=== PATIENT | female | born 1975 | race Caucasian/White ===

== ENCOUNTER 2016-04-08 07:52 | Emergency (ER) | payer BC, OTHER ==
[2016-04-08 08:06] VITALS: RESP 16; TEMP 97.8
--- NOTE | 2016-04-08 08:53 | ED ---
Lower Extremity Injury HPI - General Chief Complaint: Extremity Injury, Lower Stated Complaint: LEFT KNEE PAIN Time Seen by Provider: 04/08/16 08:32 Source: patient, RN notes reviewed Mode of arrival: ambulatory Limitations: no limitations - History of Present Illness Initial Comments: 40-year-old female presents emergency Department chief complaint left knee pain. Patient states that she was at work earlier this morning and states that she was bent down and machine states that she stood up states that she felt a pop in her knee. Patient states that she's had prior scopes performed on her left knee. Patient states that she does have some known laxity to her kneecap. She states that there was a sudden pop/snap and then a warm feeling to her knee. She states is swollen and states that she continue to work but states that the pain is getting worse. Patient states that she has no paresthesias. Denies any pain above or below her left knee. - Related Data Home Medications Medication Instructions Recorded Confirmed Acetaminophen [Tylenol] 325 mg PO Q4H PRN 04/08/16 04/08/16 Previous Rx's Medication Instructions Recorded Acetaminophen-Codeine 300-30mg 1 tab PO Q4H PRN #20 tablet 04/08/16 [Tylenol #3] Allergies Allergy/AdvReac Type Severity Reaction Status Date / Time latex Allergy Rash/Hives Verified 04/08/16 08:08 nitrofurantoin Allergy Unknown Verified 04/08/16 08:08 [From Macrobid] nitrofurantoin Allergy Unknown Verified 04/08/16 08:08 macrocrystalline [From Macrobid] rofecoxib [From Vioxx] Allergy Unknown Verified 04/08/16 08:08 ibuprofen AdvReac kidney Verified 04/08/16 08:08 damage Review of Systems ROS Statement: Those systems with pertinent positive or pertinent negative responses have been documented in the HPI. ROS Other: All systems not noted in ROS Statement are negative. Past Medical History Past Medical History: Renal Disease Additional Past Medical History / Comment(s): polycystic kidney disease stage 2 kidney stones History of Any Multi-Drug Resistant Organisms: None Reported Past Surgical History: Orthopedic Surgery, Tubal Ligation Past Psychological History: No Psychological Hx Reported Smoking Status: Light tobacco smoker Past Alcohol Use History: None Reported Past Drug Use History: None Reported General Exam General appearance: alert, in no apparent distress Head exam: Present: atraumatic, normocephalic, normal inspection Respiratory exam: Present: normal lung sounds bilaterally. Absent: respiratory distress, wheezes, rales, rhonchi, stridor Cardiovascular Exam: Present: regular rate, normal rhythm, normal heart sounds. Absent: systolic murmur, diastolic murmur, rubs, gallop, clicks Extremities exam: Present: other (Left knee there is mild swelling, there is some laxity noted to the patella, there is no joint laxity noted neurovascular intact there is no ecchymosis there is no tenderness above or below the left knee.) Skin exam: Present: warm, dry, intact, normal color. Absent: rash Course Vital Signs 04/08/16 07:58 Temperature 97.8 F Pulse Rate 88 Respiratory 16 Rate Blood Pressure 139/80 O2 Sat by Pulse 97 Oximetry Medical Decision Making - Medical Decision Making 40-year-old female presented for left knee pain. X-ray shows no acute abnormality. Patient possibly had a left patella subluxation. Patient does have some generalized pain and swelling. Patient will be referred to [facility] for recheck. Patient be kept off work and placed in knee immobilizer. Disposition Clinical Impression: Left knee sprain Disposition: HOME SELF-CARE Condition: Stable Instructions: Knee Sprain (ED) Additional Instructions: Please return to the Emergency Department if symptoms worsen or any other concerns. Prescriptions: Acetaminophen-Codeine 300-30mg [Tylenol #3] 1 tab PO Q4H PRN #20 tablet PRN Reason: pain Time of Disposition: 09:02
--- NOTE | 2016-04-08 08:59 | XR ---
EXAMINATION TYPE: XR knee complete LT DATE OF EXAM: 04/08/2016 8:42 AM CLINICAL HISTORY: pain TECHNIQUE: Three views of the left knee are obtained. COMPARISON: None. FINDINGS: There is no acute fracture/dislocation. The tri-compartment joint spaces appear mildly na rrowed. The overlying soft tissue appears unremarkable. IMPRESSION: There is no acute fracture or dislocation ICD 10 NO FRACTURE, INITIAL EVALUATION
[2016-04-08 09:16] VITALS: BP 160/80; PULSE 82
== END 2016-04-08 09:10 | disposition home or self-care (01) ==
LOC: EC 07:52
DX: S83.92XA Sprain of unspecified site of left knee, initial encounter (principal); Z88.8 Allergy status to other drugs, medicaments and biological substances; Z91.040 Latex allergy status; Z88.1 Allergy status to other antibiotic agents; F17.200 Nicotine dependence, unspecified, uncomplicated; X58.XXXA Exposure to other specified factors, initial encounter; Y99.0 Civilian activity done for income or pay
CPT/HCPCS: 73562; 99283; L1830

== ENCOUNTER 2017-09-26 04:07 | Emergency (ER) | payer BC, OTHER ==
--- NOTE | 2017-09-26 04:48 | XR ---
EXAMINATION TYPE: XR chest 1V portable DATE OF EXAM: 09/26/2017 COMPARISON: 07/16/2015 HISTORY: Syncope TECHNIQUE: Single frontal view of the chest is obtained. FINDINGS: Heart and mediastinum are normal. Lungs are clear. Diaphragm is normal. Bony thorax appear s normal. IMPRESSION: Normal chest. No change.
--- NOTE | 2017-09-26 05:04 | ED ---
Syncope HPI - General Chief Complaint: Syncope Stated Complaint: Syncope Time Seen by Provider: 09/26/17 04:27 Source: patient Mode of arrival: wheelchair Limitations: no limitations - History of Present Illness Initial Comments: This patient is a 41-year-old woman who presents following a syncopal episode to be evaluated. The patient states she had been at work tonight. She states she had gone to take a break and had walked to the break room. She states that as she went to sit down she noted that she wasn't feeling very well. She states feels a little bit sweaty and lightheaded. She states that the next thing that she knew one of her coworkers was waking her she was slumped on the table that she had sat down it. The patient denies any injury. She did not have any chest pain or dyspnea. No palpitations. Patient states that she feels back to normal MD Complaint: loss of consciousness, felt faint Onset/Timin -: hour(s) Prodromal Symptoms: lightheaded, diaphoresis -: second(s) Witnessed: yes - by bystander Injuries Sustained Associated with Event: None Current Symptoms: back to baseline Treatments Prior to Arrival: none - Related Data Home Medications Medication Instructions Recorded Confirmed Acetaminophen [Tylenol] 325 mg PO Q4H PRN 04/08/16 04/08/16 Previous Rx's Medication Instructions Recorded Acetaminophen-Codeine 300-30mg 1 tab PO Q4H PRN #20 tablet 04/08/16 [Tylenol #3] Allergies Allergy/AdvReac Type Severity Reaction Status Date / Time latex Allergy Rash/Hives Verified 09/26/17 04:24 nitrofurantoin Allergy Unknown Verified 09/26/17 04:24 [From Macrobid] nitrofurantoin Allergy Unknown Verified 09/26/17 04:24 macrocrystalline [From Macrobid] rofecoxib [From Vioxx] Allergy Unknown Verified 09/26/17 04:24 ibuprofen AdvReac kidney Verified 09/26/17 04:24 damage Review of Systems ROS Statement: Those systems with pertinent positive or pertinent negative responses have been documented in the HPI. ROS Other: All systems not noted in ROS Statement are negative. Constitutional: Denies: fever, chills, weakness Eyes: Denies: vision change Respiratory: Denies: cough, dyspnea Cardiovascular: Reports: syncope. Denies: chest pain, palpitations, dyspnea on exertion, edema Gastrointestinal: Denies: abdominal pain, nausea, vomiting, melena, hematochezia Genitourinary: Denies: dysuria, hematuria Musculoskeletal: Denies: back pain Neurological: Denies: headache, weakness, numbness, confusion Past Medical History Past Medical History: Renal Disease Additional Past Medical History / Comment(s): polycystic kidney disease stage 2 kidney stones History of Any Multi-Drug Resistant Organisms: None Reported Past Surgical History: Orthopedic Surgery, Tubal Ligation Past Psychological History: No Psychological Hx Reported Smoking Status: Light tobacco smoker Past Alcohol Use History: None Reported Past Drug Use History: None Reported General Exam Limitations: no limitations General appearance: alert, in no apparent distress Head exam: Present: atraumatic, normocephalic Eye exam: Present: normal appearance. Absent: scleral icterus, conjunctival injection ENT exam: Present: normal oropharynx Respiratory exam: Present: normal lung sounds bilaterally. Absent: respiratory distress, wheezes, rales, rhonchi, stridor Cardiovascular Exam: Present: regular rate, normal rhythm, normal heart sounds. Absent: systolic murmur, diastolic murmur, rubs, gallop GI/Abdominal exam: Present: soft. Absent: distended, tenderness, guarding, rebound, mass Extremities exam: Present: normal inspection, normal capillary refill. Absent: pedal edema, calf tenderness Back exam: Present: normal inspection. Absent: CVA tenderness (R), CVA tenderness (L) Neurological exam: Present: alert, oriented X3, CN II-XII intact. Absent: motor sensory deficit Skin exam: Present: warm, dry, intact, normal color. Absent: rash Course Vital Signs 09/26/17 09/26/17 04:20 07:25 Temperature 98.3 F 98.0 F Pulse Rate 84 77 Respiratory 16 18 Rate Blood Pressure 130/79 125/64 O2 Sat by Pulse 98 100 Oximetry EKG Findings - EKG Results: EKG: interpreted by OSMEL FOURNIER, sinus rhythm (Rate 60 bpm), normal axis, normal QRS, normal ST/T, no acute changes - [place], Pacemaker, Normal: Normal tracing: normal tracing Medical Decision Making - Lab Data Result diagrams: 09/26/17 05:23 09/26/17 05:23 Lab Results 09/26/17 09/26/17 09/26/17 Range/Units 05:23 05:23 05:23 WBC 7.9 (3.8-10.6) k/uL RBC 5.12 (3.80-5.40) m/uL Hgb 9.8 L (11.4-16.0) gm/dL Hct 33.2 L (34.0-46.0) % MCV 64.9 L (80.0-100.0) fL MCH 19.2 L (25.0-35.0) pg MCHC 29.5 L (31.0-37.0) g/dL RDW 17.4 H (11.5-15.5) % Plt Count 262 (150-450) k/uL Neutrophils % 72 % Lymphocytes % 20 % Monocytes % 5 % Eosinophils % 1 % Basophils % 0 % Neutrophils # 5.7 (1.3-7.7) k/uL Lymphocytes # 1.6 (1.0-4.8) k/uL Monocytes # 0.4 (0-1.0) k/uL Eosinophils # 0.1 (0-0.7) k/uL Basophils # 0.0 (0-0.2) k/uL Hypochromasia Marked Anisocytosis Slight Microcytosis Marked PT (9.0-12.0) sec INR (<1.2) APTT (22.0-30.0) sec D-Dimer (<0.60) mg/L FEU Sodium 138 (137-145) mmol/L Potassium 3.8 (3.5-5.1) mmol/L Chloride 107 (98-107) mmol/L Carbon Dioxide 24 (22-30) mmol/L Anion Gap 7 mmol/L BUN 15 (7-17) mg/dL Creatinine 0.80 (0.52-1.04) mg/dL Est GFR (CKD-EPI)AfAm >90 (>60 ml/min/1.73 sqM) Est GFR (CKD-EPI)NonAf >90 (>60 ml/min/1.73 sqM) Glucose 98 (74-99) mg/dL Calcium 9.0 (8.4-10.2) mg/dL Total Bilirubin 0.2 (0.2-1.3) mg/dL AST 17 (14-36) U/L ALT 29 (9-52) U/L Alkaline Phosphatase 59 (38-126) U/L Total Creatine Kinase 72 (30-135) U/L CK-MB (CK-2) 0.5 (0.0-2.4) ng/mL CK-MB (CK-2) Rel Index 0.7 Troponin I <0.012 (0.000-0.034) ng/mL Total Protein 6.1 L (6.3-8.2) g/dL Albumin 3.6 (3.5-5.0) g/dL Urine Color Urine Appearance (Clear) Urine pH (5.0-8.0) Ur Specific [place] (1.001-1.035) Urine Protein (Negative) Urine Glucose (UA) (Negative) Urine Ketones (Negative) Urine Blood (Negative) Urine Nitrite (Negative) Urine Bilirubin (Negative) Urine Urobilinogen (<2.0) mg/dL Ur Leukocyte Esterase (Negative) Urine RBC (0-5) /hpf Urine WBC (0-5) /hpf Ur Squamous Epith Cells (0-4) /hpf Urine Bacteria (None) /hpf Urine Mucus (None) /hpf 09/26/17 09/26/17 Range/Units 05:23 06:46 WBC (3.8-10.6) k/uL RBC (3.80-5.40) m/uL Hgb (11.4-16.0) gm/dL Hct (34.0-46.0) % MCV (80.0-100.0) fL MCH (25.0-35.0) pg MCHC (31.0-37.0) g/dL RDW (11.5-15.5) % Plt Count (150-450) k/uL Neutrophils % % Lymphocytes % % Monocytes % % Eosinophils % % Basophils % % Neutrophils # (1.3-7.7) k/uL Lymphocytes # (1.0-4.8) k/uL Monocytes # (0-1.0) k/uL Eosinophils # (0-0.7) k/uL Basophils # (0-0.2) k/uL Hypochromasia Anisocytosis Microcytosis PT 9.8 (9.0-12.0) sec INR 1.0 (<1.2) APTT 21.0 L (22.0-30.0) sec D-Dimer 0.52 (<0.60) mg/L FEU Sodium (137-145) mmol/L Potassium (3.5-5.1) mmol/L Chloride (98-107) mmol/L Carbon Dioxide (22-30) mmol/L Anion Gap mmol/L BUN (7-17) mg/dL Creatinine (0.52-1.04) mg/dL Est GFR (CKD-EPI)AfAm (>60 ml/min/1.73 sqM) Est GFR (CKD-EPI)NonAf (>60 ml/min/1.73 sqM) Glucose (74-99) mg/dL Calcium (8.4-10.2) mg/dL Total Bilirubin (0.2-1.3) mg/dL AST (14-36) U/L ALT (9-52) U/L Alkaline Phosphatase (38-126) U/L Total Creatine Kinase (30-135) U/L CK-MB (CK-2) (0.0-2.4) ng/mL CK-MB (CK-2) Rel Index Troponin I (0.000-0.034) ng/mL Total Protein (6.3-8.2) g/dL Albumin (3.5-5.0) g/dL Urine Color Light Yellow Urine Appearance Cloudy H (Clear) Urine pH 5.0 (5.0-8.0) Ur Specific [place] 1.007 (1.001-1.035) Urine Protein Negative (Negative) Urine Glucose (UA) Negative (Negative) Urine Ketones Negative (Negative) Urine Blood Small H (Negative) Urine Nitrite Negative (Negative) Urine Bilirubin Negative (Negative) Urine Urobilinogen <2.0 (<2.0) mg/dL Ur Leukocyte Esterase Moderate H (Negative) Urine RBC 1 (0-5) /hpf Urine WBC 4 (0-5) /hpf Ur Squamous Epith Cells 1 (0-4) /hpf Urine Bacteria Many H (None) /hpf Urine Mucus Rare H (None) /hpf Disposition Clinical Impression: Vasovagal syncope, Anemia Disposition: HOME SELF-CARE Condition: Good Instructions: Syncope (ED) Is patient prescribed a controlled substance at d/c from ED?: No Referrals: Ramírez Garcia MD [Primary Care Provider] - 1-2 days
[2017-09-26 05:36] LABS: Anisocytosis Slight; Basophils % (A) 0 %; Eosinophils # (A) 0.1 k/uL (0-0.7); Eosinophils % (A) 1 %; HCT 33.2 % (34.0-46.0); HGB 9.8 gm/dL (11.4-16.0); Hypochromasia Marked; Lymphocytes # (A) 1.6 k/uL (1.0-4.8); Lymphocytes % (A) 20 %; MCH 19.2 pg (25.0-35.0); MCHC 29.5 g/dL (31.0-37.0); MCV 64.9 fL (80.0-100.0); Microcytosis Marked; Monocytes # (A) 0.4 k/uL (0-1.0); Monocytes % (A) 5 %; Neutrophils # (A) 5.7 k/uL (1.3-7.7); Neutrophils % (A) 72 %; Platelet Count 262 k/uL (150-450); RBC 5.12 m/uL (3.80-5.40); RDW 17.4 % (11.5-15.5); WBC 7.9 k/uL (3.8-10.6)
[2017-09-26 05:59] LABS: ALT 29 U/L (9-52); AST 17 U/L (14-36); Albumin 3.6 g/dL (3.5-5.0); Alkaline Phosphatase 59 U/L (38-126); Anion Gap 7 mmol/L; Blood Urea Nitrogen 15 mg/dL (7-17); Carbon Dioxide 24 mmol/L (22-30); Chloride 107 mmol/L (98-107); Glucose 98 mg/dL (74-99); Potassium 3.8 mmol/L (3.5-5.1); Sodium 138 mmol/L (137-145); Total Bilirubin 0.2 mg/dL (0.2-1.3); Total Protein 6.1 g/dL (6.3-8.2)
[2017-09-26 06:14] LABS: Creatine Kinase 72 U/L (30-135)
[2017-09-26 06:22] LABS: D-Dimer 0.52 mg/L FEU (<0.60); Prothrombin Time 9.8 sec (9.0-12.0)
[2017-09-26 06:27] LABS: Creatine Kinase MB 0.5 ng/mL (0.0-2.4); Troponin I <0.012 ng/mL (0.000-0.034)
[2017-09-26 07:02] LABS: Appearance,Urine Cloudy (Clear); Bacteria,Urine Many /hpf; Bilirubin,Urine Negative (Negative); Blood,Urine Small (Negative); Color,Urine Light Yellow; Glucose,Urine (UA) Negative (Negative); Ketones,Urine Negative (Negative); Leukocyte Esterase,Urine Moderate (Negative); Mucus,Urine Rare /hpf; Nitrite,Urine Negative (Negative); Protein,Urine Negative (Negative); RBC,Urine 1 /hpf (0-5); Specific Gravity,Urine 1.007 (1.001-1.035); Squamous Epithelial Cell,Urine 1 /hpf (0-4); Urobilinogen,Urine <2.0 mg/dL (<2.0); WBC,Urine 4 /hpf (0-5)
[2017-09-26 07:26] VITALS: BP 125/64; PULSE 77; RESP 18; TEMP 98
== END 2017-09-26 07:26 | disposition home or self-care (01) ==
LOC: EC 04:07
DX: R55 Syncope and collapse (principal); D64.9 Anemia, unspecified; F17.200 Nicotine dependence, unspecified, uncomplicated; Z91.040 Latex allergy status; Z88.1 Allergy status to other antibiotic agents; Z88.6 Allergy status to analgesic agent; Z88.8 Allergy status to other drugs, medicaments and biological substances
CPT/HCPCS: 36415; 71045; 80053; 81001; 82550; 82553; 84484; 85025; 85379; 85610; 85730; 93005; 99284

== ENCOUNTER 2018-10-27 03:51 | Emergency (ER) | payer BC ==
[2018-10-27 04:03] VITALS: BP 150/77; PULSE 70; RESP 18; TEMP 98.2
[2018-10-27] MEDS ORDERED: MORPHINE SULFATE 4 MG/ML SYRINGE IM STA (04:36)
--- NOTE | 2018-10-27 04:37 | ED ---
Lower Extremity Injury HPI - General Chief Complaint: Extremity Injury, Lower Stated Complaint: Lt knee pain Time Seen by Provider: 10/27/18 04:10 Source: patient, family Mode of arrival: ambulatory Limitations: no limitations - History of Present Illness Initial Comments: Amelia is a 42-year-old female with chronic left-sided knee pain for which she has undergone orthoscopic surgery of the left knee 3 times in the past. Patient reports that due to these previous surgery she does typically have some laxity in the patella many. Patient reports that she was walking today and felt like her leg gave out and since that time has felt a burning sensation on the left lateral side of her knee. Patient has not noticed any swelling or redness tenderness she still able to ambulate but has discomfort and burning. She denies other complaints or injuries. - Related Data Home Medications Medication Instructions Recorded Confirmed Acetaminophen [Tylenol] 325 mg PO Q4H PRN 04/08/16 04/08/16 Previous Rx's Medication Instructions Recorded Acetaminophen-Codeine 300-30mg 1 tab PO Q4H PRN #20 tablet 04/08/16 [Tylenol #3] Allergies Allergy/AdvReac Type Severity Reaction Status Date / Time latex Allergy Rash/Hives Verified 10/27/18 04:03 nitrofurantoin Allergy Unknown Verified 10/27/18 04:03 [From Macrobid] nitrofurantoin Allergy Unknown Verified 10/27/18 04:03 macrocrystalline [From Macrobid] rofecoxib [From Vioxx] Allergy Unknown Verified 10/27/18 04:03 ibuprofen AdvReac kidney Verified 10/27/18 04:03 damage Review of Systems ROS Statement: Those systems with pertinent positive or pertinent negative responses have been documented in the HPI. ROS Other: All systems not noted in ROS Statement are negative. Past Medical History Past Medical History: Renal Disease Additional Past Medical History / Comment(s): polycystic kidney disease stage 2 kidney stones History of Any Multi-Drug Resistant Organisms: None Reported Past Surgical History: Orthopedic Surgery, Tubal Ligation Past Psychological History: No Psychological Hx Reported Smoking Status: Current every day smoker Past Alcohol Use History: None Reported Past Drug Use History: None Reported General Exam - General Exam Comments Initial Comments: Physical Exam GENERAL: Patient is well-developed and well-nourished. Patient is nontoxic and well- hydrated and is in no distress. HENT: Normocephalic, Atraumatic. EYES: PERRL, EOMI PULMONARY: Unlabored respirations. No audible rales rhonchi or wheezing was noted. CARDIOVASCULAR: There is a regular rate and rhythm without any murmurs gallops or rubs. ABDOMEN: Soft and nontender with normal bowel sounds. SKIN: Skin is clear with no lesions or rashes and otherwise unremarkable. : Deferred NEUROLOGIC: Patient is alert and oriented x3. Moving all extremities spontaneously MUSCULOSKELETAL: Normal extremities with adequate strength and full range of motion. No lower extremity swelling or edema. No calf tenderness. Crepitus with movement of the patella, consistent with chronic arthritic changes PSYCHIATRIC: Normal psychiatric evaluation. Limitations: no limitations Course Vital Signs 10/27/18 03:59 Temperature 98.2 F Pulse Rate 70 Respiratory 18 Rate Blood Pressure 150/77 O2 Sat by Pulse 100 Oximetry Medical Decision Making - Medical Decision Making The patient was seen and evaluated history is obtained from the patient's history and physical exam are concerning for acute on chronic knee pain Patient is ALLERGIC to NSAIDs therefore IM morphine was ordered for pain management patient was advised to follow-up with orthopedics Disposition Clinical Impression: Chronic knee pain Disposition: HOME SELF-CARE Condition: Stable Instructions (If sedation given, give patient instructions): Knee Pain (ED) Is patient prescribed a controlled substance at d/c from ED?: No Referrals: Ramírez Garcia MD [Primary Care Provider] - 1-2 days
== END 2018-10-27 05:24 | disposition home or self-care (01) ==
LOC: EC 03:51
DX: G89.29 Other chronic pain (principal); M25.562 Pain in left knee; F17.200 Nicotine dependence, unspecified, uncomplicated; Z88.1 Allergy status to other antibiotic agents; Z88.6 Allergy status to analgesic agent; Z91.040 Latex allergy status; Z98.890 Other specified postprocedural states
CPT/HCPCS: 99283; 96372; J2270

== ENCOUNTER 2019-04-23 11:58 | Day surgery (SDC) | payer BC ==
[2019-04-20 09:59] VITALS: BMI 30.9
[~2019-04-23 11:58] MED LIST: SODIUM CHLORIDE 0.9% 1,000 ML IV SCH
[2019-04-23] MEDS ORDERED: IV FLUID CONTINUATION 1,000 ML IV ONE (12:20)
[2019-04-23 12:48] VITALS: BP 138/80; PULSE 94; RESP 16; TEMP 98.4
--- NOTE | 2019-04-23 16:04 | P.PCN ---
Preoperative Diagnosis: Diagnosis: Recurrent syncope Baseline 12-lead EKG shows sinus mechanism with artifact, normal CO, narrow QRS, normal ST segments, normal QT interval, no delta or epsilon waves Baseline heart rate was 75 bpm, Baseline blood pressure was 121/76 mmHg. The patient was tilted upright at a 70 angle as per protocol. Blood pressure remained stable, no significant changes in heart rate. The patient did complain of dizziness during the procedure and at that time her blood pressure was 129/82 mmHg and her heart rate was 99 bpm. At the end of the procedure she was laid supine. Her vital signs remained stable. She was asymptomatic. Impression Normal twelve-lead EKG Normal heart rate and blood pressure response to upright tilting No evidence for neurocardiogenic syncope or dysautonomia
== END 2019-04-23 15:30 | disposition home or self-care (01) ==
LOC: CATHEP 11:58
PROVIDERS: ATTEND Internal Medicine Clinical Cardiac Electrophysiology
DX: R55 Syncope and collapse (principal); Q61.3 Polycystic kidney, unspecified; Z72.0 Tobacco use; Z82.49 Family history of ischemic heart disease and other diseases of the circulatory system; Z88.6 Allergy status to analgesic agent; Z88.1 Allergy status to other antibiotic agents
CPT/HCPCS: 81025; 93660

== ENCOUNTER 2019-12-23 23:23 | Emergency (ER) | payer BC, OTHER ==
[2019-12-23 23:28] VITALS: RESP 18
[2019-12-23] MEDS ORDERED: SODIUM CHLORIDE 0.9% 1,000 ML IV STA (23:41)
[2019-12-24 00:15] LABS: Basophils % (A) 0 %; Eosinophils # (A) 0.2 k/uL (0-0.7); Eosinophils % (A) 3 %; HCT 45.9 % (34.0-46.0); HGB 15.2 gm/dL (11.4-16.0); Lymphocytes # (A) 1.5 k/uL (1.0-4.8); Lymphocytes % (A) 21 %; MCH 28.7 pg (25.0-35.0); MCHC 33.2 g/dL (31.0-37.0); MCV 86.4 fL (80.0-100.0); Mean Platelet Volume 8.8; Monocytes # (A) 0.4 k/uL (0-1.0); Monocytes % (A) 6 %; Neutrophils # (A) 4.8 k/uL (1.3-7.7); Neutrophils % (A) 68 %; Platelet Count 157 k/uL (150-450); RBC 5.31 m/uL (3.80-5.40); RDW 12.8 % (11.5-15.5); WBC 7.1 k/uL (3.8-10.6)
[2019-12-24 00:27] LABS: ALT 15 U/L (4-34); AST 18 U/L (14-36); African American GFR (CKD) >90 (>60 ml/min/1.73 sqM); Albumin 3.2 g/dL (3.5-5.0); Alkaline Phosphatase 63 U/L (38-126); Anion Gap 5 mmol/L; Blood Urea Nitrogen 14 mg/dL (7-17); C Reactive Protein 7.7 mg/L (<10.0); Calcium 8.6 mg/dL (8.4-10.2); Carbon Dioxide 21 mmol/L (22-30); Chloride 109 mmol/L (98-107); Glucose 112 mg/dL (74-99); Non-African American GFR(CKD) >90 (>60 ml/min/1.73 sqM); Potassium 3.8 mmol/L (3.5-5.1); Sodium 135 mmol/L (137-145); Total Bilirubin 0.2 mg/dL (0.2-1.3); Total Protein 5.9 g/dL (6.3-8.2)
[2019-12-24 01:27] LABS: Appearance,Urine Clear (Clear); Bacteria,Urine Occasional /hpf; Bilirubin,Urine Negative (Negative); Blood,Urine Moderate (Negative); Color,Urine Light Yellow; Glucose,Urine (UA) Negative (Negative); Hyaline Casts,Urine 1 /lpf (0-2); Ketones,Urine Negative (Negative); Leukocyte Esterase,Urine Trace (Negative); Mucus,Urine Rare /hpf; Nitrite,Urine Negative (Negative); PH, Urine 5.5 (5.0-8.0); Protein,Urine 1+ (Negative); RBC,Urine 1 /hpf (0-5); Squamous Epithelial Cell,Urine 2 /hpf (0-4); Urobilinogen,Urine <2.0 mg/dL (<2.0); WBC,Urine 3 /hpf (0-5)
--- NOTE | 2019-12-24 02:00 | ED ---
Abdominal Pain HPI - General Chief Complaint: Abdominal Pain Stated Complaint: Pelvic/Hip Pain Time Seen by Provider: 12/23/19 23:34 Source: patient Mode of arrival: ambulatory Limitations: no limitations - History of Present Illness Initial Comments: Amelia is a 44-year-old female with a history of polycystic kidney disease who presents the ER today for evaluation of right lower quadrant abdominal pain. Patient reports she initially developed some pain on , the pain seemed to improve however tonight when she was getting ready for work the pain worsened. Pain is in her right lower quadrant seems to radiate to the hip. No pain radiating to the back. Patient states she does have a history of rupturing of systems he needs in the past which has resulted in pain similar to this however this seemed more severe which prompted her bring her to the ER for further evaluation. She didn't know mild blood in her urine earlier today but denies any change in bowel or bladder habits, any dysuria. - Related Data Home Medications Medication Instructions Recorded Confirmed Acetaminophen [Tylenol] 325 mg PO Q4H PRN 04/08/16 04/20/19 Naproxen Sodium [Aleve] 220 mg PO DAILY PRN 04/20/19 04/20/19 Allergies Allergy/AdvReac Type Severity Reaction Status Date / Time latex Allergy Rash/Hives Verified 12/23/19 23:28 nitrofurantoin Allergy Unknown Verified 12/23/19 23:28 [From Macrobid] nitrofurantoin Allergy Unknown Verified 12/23/19 23:28 macrocrystalline [From Macrobid] rofecoxib [From Vioxx] Allergy Unknown Verified 12/23/19 23:28 ibuprofen AdvReac kidney Verified 12/23/19 23:28 damage Review of Systems ROS Statement: Those systems with pertinent positive or pertinent negative responses have been documented in the HPI. ROS Other: All systems not noted in ROS Statement are negative. Past Medical History Past Medical History: Renal Disease, Syncope Additional Past Medical History / Comment(s): Polycystic Kidney Disease, Stage 2, hx kidney stones. Hx syncope X2 since Jan 2019. History of Any Multi-Drug Resistant Organisms: None Reported Past Surgical History: Orthopedic Surgery, Tubal Ligation Additional Past Surgical History / Comment(s): Left knee arthroscopy X3. Past Anesthesia/Blood Transfusion Reactions: No Reported Reaction Past Psychological History: No Psychological Hx Reported Smoking Status: Current every day smoker Past Alcohol Use History: Occasional Past Drug Use History: None Reported - Past Family History Mother Family Medical History: No Reported History General Exam - General Exam Comments Initial Comments: Physical Exam GENERAL: Patient is well-developed and well-nourished. Patient is nontoxic and well-hydrated and is in no distress. HENT: Normocephalic, Atraumatic. EYES: PERRL, EOMI PULMONARY: Unlabored respirations. No audible rales rhonchi or wheezing was noted. CARDIOVASCULAR: There is a regular rate and rhythm without any murmurs gallops or rubs. ABDOMEN: Obese Non-peritoneal Soft and nontender with normal bowel sounds. SKIN: Skin is clear with no lesions or rashes and otherwise unremarkable. : Deferred NEUROLOGIC: Patient is alert and oriented x3. Moving all extremities spontaneously MUSCULOSKELETAL: Normal extremities with adequate strength and full range of motion. No lower extremity swelling or edema. No calf tenderness. PSYCHIATRIC: Normal psychiatric evaluation. Limitations: no limitations Course Vital Signs 12/23/19 12/24/19 23:24 02:14 Temperature 98 F Pulse Rate 79 65 Respiratory 18 18 Rate Blood Pressure 163/90 151/86 O2 Sat by Pulse 98 97 Oximetry Medical Decision Making - Medical Decision Making The patient was seen and evaluated for right lower quadrant abdominal pain which she reports is similar to previous cyst ruptures from her polycystic ED disease. Physical exam is unremarkable there's no evidence of inguinal hernia or abdominal wall hernia no peritonitis Labs and CT were unremarkable Discussed with patient that she is likely right that her discomfort is secondary to cysts, she is comfortable to plan for discharge home will be given a single dose of pain medications prior to discharge and discharged home with a Tylenol 3 starter pack - Lab Data Result diagrams: 12/24/19 00:08 12/24/19 00:08 Lab Results 12/24/19 12/24/19 12/24/19 Range/Units 00:08 00:08 00:08 WBC 7.1 (3.8-10.6) k/uL RBC 5.31 (3.80-5.40) m/uL Hgb 15.2 (11.4-16.0) gm/dL Hct 45.9 (34.0-46.0) % MCV 86.4 (80.0-100.0) fL MCH 28.7 (25.0-35.0) pg MCHC 33.2 (31.0-37.0) g/dL RDW 12.8 (11.5-15.5) % Plt Count 157 (150-450) k/uL Neutrophils % 68 % Lymphocytes % 21 % Monocytes % 6 % Eosinophils % 3 % Basophils % 0 % Neutrophils # 4.8 (1.3-7.7) k/uL Lymphocytes # 1.5 (1.0-4.8) k/uL Monocytes # 0.4 (0-1.0) k/uL Eosinophils # 0.2 (0-0.7) k/uL Basophils # 0.0 (0-0.2) k/uL Sodium 135 L (137-145) mmol/L Potassium 3.8 (3.5-5.1) mmol/L Chloride 109 H (98-107) mmol/L Carbon Dioxide 21 L (22-30) mmol/L Anion Gap 5 mmol/L BUN 14 (7-17) mg/dL Creatinine 0.78 (0.52-1.04) mg/dL Est GFR (CKD-EPI)AfAm >90 (>60 ml/min/1.73 sqM) Est GFR (CKD-EPI)NonAf >90 (>60 ml/min/1.73 sqM) Glucose 112 H (74-99) mg/dL Calcium 8.6 (8.4-10.2) mg/dL Total Bilirubin 0.2 (0.2-1.3) mg/dL AST 18 (14-36) U/L ALT 15 (4-34) U/L Alkaline Phosphatase 63 (38-126) U/L C-Reactive Protein 7.7 (<10.0) mg/L Total Protein 5.9 L (6.3-8.2) g/dL Albumin 3.2 L (3.5-5.0) g/dL Lipase 149 (23-300) U/L Urine Color Light Yellow Urine Appearance Clear (Clear) Urine pH 5.5 (5.0-8.0) Ur Specific [place] 1.010 (1.001-1.035) Urine Protein 1+ H (Negative) Urine Glucose (UA) Negative (Negative) Urine Ketones Negative (Negative) Urine Blood Moderate H (Negative) Urine Nitrite Negative (Negative) Urine Bilirubin Negative (Negative) Urine Urobilinogen <2.0 (<2.0) mg/dL Ur Leukocyte Esterase Trace H (Negative) Urine RBC 1 (0-5) /hpf Urine WBC 3 (0-5) /hpf Ur Squamous Epith Cells 2 (0-4) /hpf Urine Bacteria Occasional H (None) /hpf Hyaline Casts 1 (0-2) /lpf Urine Mucus Rare H (None) /hpf Disposition Clinical Impression: Abdominal pain Disposition: HOME SELF-CARE Condition: Stable Instructions (If sedation given, give patient instructions): Abdominal Pain (ED) Is patient prescribed a controlled substance at d/c from ED?: No Referrals: Ramírez Garcia MD [Primary Care Provider] - 1-2 days
--- NOTE | 2019-12-24 02:29 | CT ---
EXAMINATION TYPE: CT abdomen pelvis w con DATE OF EXAM: 12/24/2019 COMPARISON: 09/28/2015 HISTORY: RLQ pain/Groin pain CT DLP: 1695.8 mGycm Automated exposure control for dose reduction was used. CONTRAST: Performed with IV Contrast, patient injected with 100 mL of Isovue 300. Lung bases are clear of consolidation. There is no pleural effusion. Heart appears normal. There is n o pericardial effusion. There are multiple small cysts in the liver that measure up to 1.6 cm. There are numerous bilateral r enal cortical cysts that measure up to 9 cm. This is consistent with adult type polycystic kidney dis ease. Spleen is intact. There is no pancreatic solid mass. There is 6 mm cyst in the body of the panc reas. The stomach is intact. Gallbladder appears normal. There is no adrenal mass. Kidneys show satisfactory contrast opacification. There is no hydronephrosi s. Ureters are not dilated. There is no retroperitoneal adenopathy. There are bilateral tubal implant s. There is no inguinal hernia. Bladder distends smoothly. There is no evidence of pelvic mass. There is no free fluid in the pelvis. Appendix is very small and appears normal. Lumbar vertebra have normal spacing and alignment. The bony pelvis is intact. Hip joints are intact. There is no evidence of hip dysplasia. IMPRESSION: Hepatic and renal cysts consistent with adult type polycystic disease. Renal cysts unchanged. Hepatic cysts are increased compared to old exam. No sign of renal obstruction. No sign of appendicitis.
[2019-12-24] MEDS ORDERED: ACET/COD 300 MG/30 MG STARTER PACK 6 TAB BTL PO STA (04:00)
[2019-12-24] MEDS ORDERED: MORPHINE SULFATE 4 MG/ML SYRINGE IVP STA (04:00)
[2019-12-24 04:28] VITALS: BP 152/83; PULSE 74; TEMP 98.1
== END 2019-12-24 04:28 | disposition home or self-care (01) ==
LOC: EC 23:23
DX: R10.31 Right lower quadrant pain (principal); F17.200 Nicotine dependence, unspecified, uncomplicated; Z88.1 Allergy status to other antibiotic agents; Z88.6 Allergy status to analgesic agent; Z88.8 Allergy status to other drugs, medicaments and biological substances; Z91.040 Latex allergy status
CPT/HCPCS: 36415; 74177; 80053; 81001; 83690; 85025; 86140; 96361; 96374; 99284

== ENCOUNTER 2020-11-05 05:49 | Emergency (ER) | payer BC, OTHER ==
[2020-11-05 06:01] VITALS: RESP 18
[2020-11-05] MEDS ORDERED: SODIUM CHLORIDE 0.9% 500 ML 500 ML IV STA (06:13)
[2020-11-05] MEDS ORDERED: ONDANSETRON 4 MG/2 ML VIAL IVP STA ×2 (06:13→08:40)
[2020-11-05] MEDS ORDERED: MORPHINE SULFATE 2 MG/ML SYRINGE IVP STA (06:13)
[2020-11-05 06:54] LABS: Anisocytosis Slight; Basophils % (A) 0 %; Eosinophils # (A) 0.1 k/uL (0-0.7); Eosinophils % (A) 1 %; HCT 36.7 % (34.0-46.0); HGB 11.8 gm/dL (11.4-16.0); Hypochromasia Slight; Lymphocytes # (A) 1.9 k/uL (1.0-4.8); Lymphocytes % (A) 25 %; MCH 24.2 pg (25.0-35.0); MCHC 32.2 g/dL (31.0-37.0); MCV 75.3 fL (80.0-100.0); Mean Platelet Volume 9.6; Microcytosis Slight; Monocytes # (A) 0.4 k/uL (0-1.0); Monocytes % (A) 5 %; Neutrophils % (A) 67 %; Platelet Count 227 k/uL (150-450); RBC 4.87 m/uL (3.80-5.40); RDW 16.2 % (11.5-15.5); WBC 7.4 k/uL (3.8-10.6)
[2020-11-05 07:02] LABS: Appearance,Urine Cloudy (Clear); Bacteria,Urine Few /hpf; Bilirubin,Urine Negative (Negative); Blood,Urine Moderate (Negative); Color,Urine Yellow; Glucose,Urine (UA) Negative (Negative); Ketones,Urine Trace (Negative); Leukocyte Esterase,Urine Trace (Negative); Mucus,Urine Rare /hpf; Nitrite,Urine Negative (Negative); Protein,Urine 1+ (Negative); RBC,Urine 2 /hpf (0-5); Specific Gravity,Urine 1.014 (1.001-1.035); Squamous Epithelial Cell,Urine 3 /hpf (0-4); Urobilinogen,Urine <2.0 mg/dL (<2.0); WBC,Urine 3 /hpf (0-5)
[2020-11-05 07:03] LABS: INR 0.9 (<1.2); Partial Thromboplastin Time 23.1 sec (22.0-30.0); Prothrombin Time 9.8 sec (9.0-12.0)
[2020-11-05 07:04] LABS: Albumin 3.7 g/dL (3.5-5.0); Calcium 9.3 mg/dL (8.4-10.2); Total Bilirubin 0.1 mg/dL (0.2-1.3); Total Protein 6.5 g/dL (6.3-8.2)
--- NOTE | 2020-11-05 07:29 | ED ---
Abdominal Pain HPI - General Chief Complaint: Abdominal Pain Stated Complaint: RT flank pain Time Seen by Provider: 11/05/20 06:04 Source: patient, family Mode of arrival: ambulatory Limitations: no limitations - History of Present Illness Initial Comments: Patient is a 44-year-old female with history of polycystic kidney disease, presenting to the emergency Department with complaints of right upper quadrant pain that started about 4 hours prior to arrival. She states she was at work and suddenly had right upper quadrant pain with some mild radiation towards the right side. She rates the pain 8/10. She does admit to some mild nausea but no vomiting, her bowel movements have been normal. She does have history of polycystic kidney disease and kidney stones, pain does feel similar to her stones. She admits to tubal ligation, no other abdominal surgeries. She denies any recent fevers or chills, no chest pain or shortness of breath, no cough. She has no further complaints. Her vitals are stable upon arrival. - Related Data Home Medications Medication Instructions Recorded Confirmed Acetaminophen [Tylenol] 325 mg PO Q4H PRN 04/08/16 04/20/19 Naproxen Sodium [Aleve] 220 mg PO DAILY PRN 04/20/19 04/20/19 Previous Rx's Medication Instructions Recorded Ondansetron Odt [Zofran Odt] 4 mg PO Q8HR PRN #10 tab 11/05/20 Allergies Allergy/AdvReac Type Severity Reaction Status Date / Time latex Allergy Rash/Hives Verified 11/05/20 06:01 nitrofurantoin Allergy Unknown Verified 11/05/20 06:01 [From Macrobid] nitrofurantoin Allergy Unknown Verified 11/05/20 06:01 macrocrystalline [From Macrobid] rofecoxib [From Vioxx] Allergy Unknown Verified 11/05/20 06:01 ibuprofen AdvReac kidney Verified 11/05/20 06:01 damage Review of Systems ROS Statement: Those systems with pertinent positive or pertinent negative responses have been documented in the HPI. ROS Other: All systems not noted in ROS Statement are negative. Past Medical History Past Medical History: Renal Disease, Syncope Additional Past Medical History / Comment(s): Polycystic Kidney Disease, Stage 2 , hx kidney stones. Hx syncope X2 since Jan 2019. History of Any Multi-Drug Resistant Organisms: None Reported Past Surgical History: Orthopedic Surgery, Tubal Ligation Additional Past Surgical History / Comment(s): Left knee arthroscopy X3. Past Anesthesia/Blood Transfusion Reactions: No Reported Reaction Past Psychological History: No Psychological Hx Reported Smoking Status: Current every day smoker Past Alcohol Use History: Occasional Past Drug Use History: None Reported - Past Family History Mother Family Medical History: No Reported History General Exam - General Exam Comments Initial Comments: GENERAL: Patient is well-developed and well-nourished. Patient is nontoxic and in no acute distress. HEAD: Atraumatic, normocephalic. EYES: Pupils equal round and reactive to light, extraocular movements intact, sclera anicteric, conjunctiva are normal. Eyelids were unremarkable. ENT: TMs normal, nares patent, oropharynx clear without exudates. Moist mucous membranes. NECK: Normal range of motion, supple without lymphadenopathy or JVD. LUNGS: Unlabored respirations. Breath sounds clear to auscultation bilaterally and equal. No wheezes rales or rhonchi. HEART: Regular rate and rhythm without murmurs, rubs or gallops. ABDOMEN: Soft, right upper quadrant pain, right sided pain, normoactive bowel sounds. No guarding, no rebound. No masses appreciated. : Deferred MUSCULOSKELETAL: Normal extremities with adequate strength and normal range of motion, no pitting or edema. No clubbing or cyanosis. NEUROLOGICAL: Patient is alert and oriented x 3. Motor and sensory are also intact. Cranial nerves II through XII grossly intact. Symmetrical smile. Normal speech, normal gait. PSYCH: Normal mood, normal affect. SKIN: Warm, Dry, normal turgor, no rashes or lesions noted. Limitations: no limitations Course Vital Signs 11/05/20 11/05/20 05:57 08:26 Temperature 98.2 F Pulse Rate 69 61 Respiratory 18 18 Rate Blood Pressure 170/82 136/77 O2 Sat by Pulse 100 100 Oximetry Medical Decision Making - Medical Decision Making Patient is a 44-year-old female here for right sided pain right upper quadrant pain started at 2 AM when she was at work. She does have a history polycystic kidney disease, kidney stones. She denies any fevers. Mild nausea but no vomiting no diarrhea. Labs show a normal white count of 7.4, kidney function is stable, urine does show moderate blood but no signs of infection. She states she is not on her menstrual cycle. I didn't ultrasound of the gallbladder, there is no other abnormality seen other than the polycystic kidney disease. KUB showed no acute process. Given the hematuria and abrupt onset of pain, suspect likely a small kidney stone. I did give her some fluids pain control, she's been resting comfortably. I discussed continue to increase her fluid intake, will send her home with Zofran and some pain relief. She is in agreement with this plan of care. She can follow up with urology. Return parameters were discussed with her and she verbalized understanding. Case discussed with Dr. Veras. - Lab Data Result diagrams: 11/05/20 06:36 11/05/20 06:36 Lab Results 11/05/20 11/05/20 11/05/20 Range/Units 06:36 06:36 06:36 WBC 7.4 (3.8-10.6) k/uL RBC 4.87 (3.80-5.40) m/uL Hgb 11.8 (11.4-16.0) gm/dL Hct 36.7 (34.0-46.0) % MCV 75.3 L (80.0-100.0) fL MCH 24.2 L (25.0-35.0) pg MCHC 32.2 (31.0-37.0) g/dL RDW 16.2 H (11.5-15.5) % Plt Count 227 (150-450) k/uL MPV 9.6 Neutrophils % 67 % Lymphocytes % 25 % Monocytes % 5 % Eosinophils % 1 % Basophils % 0 % Neutrophils # 5.0 (1.3-7.7) k/uL Lymphocytes # 1.9 (1.0-4.8) k/uL Monocytes # 0.4 (0-1.0) k/uL Eosinophils # 0.1 (0-0.7) k/uL Basophils # 0.0 (0-0.2) k/uL Hypochromasia Slight Anisocytosis Slight Microcytosis Slight PT 9.8 (9.0-12.0) sec INR 0.9 (<1.2) APTT 23.1 (22.0-30.0) sec Sodium (137-145) mmol/L Potassium (3.5-5.1) mmol/L Chloride (98-107) mmol/L Carbon Dioxide (22-30) mmol/L Anion Gap mmol/L BUN (7-17) mg/dL Creatinine (0.52-1.04) mg/dL Est GFR (CKD-EPI)AfAm (>60 ml/min/1.73 sqM) Est GFR (CKD-EPI)NonAf (>60 ml/min/1.73 sqM) Glucose (74-99) mg/dL Calcium (8.4-10.2) mg/dL Total Bilirubin (0.2-1.3) mg/dL AST (14-36) U/L ALT (4-34) U/L Alkaline Phosphatase (38-126) U/L Total Protein (6.3-8.2) g/dL Albumin (3.5-5.0) g/dL Amylase (30-110) U/L Lipase (23-300) U/L Urine Color Yellow Urine Appearance Cloudy H (Clear) Urine pH 5.0 (5.0-8.0) Ur Specific [place] 1.014 (1.001-1.035) Urine Protein 1+ H (Negative) Urine Glucose (UA) Negative (Negative) Urine Ketones Trace H (Negative) Urine Blood Moderate H (Negative) Urine Nitrite Negative (Negative) Urine Bilirubin Negative (Negative) Urine Urobilinogen <2.0 (<2.0) mg/dL Ur Leukocyte Esterase Trace H (Negative) Urine RBC 2 (0-5) /hpf Urine WBC 3 (0-5) /hpf Ur Squamous Epith Cells 3 (0-4) /hpf Urine Bacteria Few H (None) /hpf Urine Mucus Rare H (None) /hpf Urine HCG, Qual (Not Detectd) 11/05/20 11/05/20 Range/Units 06:36 06:36 WBC (3.8-10.6) k/uL RBC (3.80-5.40) m/uL Hgb (11.4-16.0) gm/dL Hct (34.0-46.0) % MCV (80.0-100.0) fL MCH (25.0-35.0) pg MCHC (31.0-37.0) g/dL RDW (11.5-15.5) % Plt Count (150-450) k/uL MPV Neutrophils % % Lymphocytes % % Monocytes % % Eosinophils % % Basophils % % Neutrophils # (1.3-7.7) k/uL Lymphocytes # (1.0-4.8) k/uL Monocytes # (0-1.0) k/uL Eosinophils # (0-0.7) k/uL Basophils # (0-0.2) k/uL Hypochromasia Anisocytosis Microcytosis PT (9.0-12.0) sec INR (<1.2) APTT (22.0-30.0) sec Sodium 136 L (137-145) mmol/L Potassium 4.0 (3.5-5.1) mmol/L Chloride 107 (98-107) mmol/L Carbon Dioxide 23 (22-30) mmol/L Anion Gap 6 mmol/L BUN 18 H (7-17) mg/dL Creatinine 0.93 (0.52-1.04) mg/dL Est GFR (CKD-EPI)AfAm 88 (>60 ml/min/1.73 sqM) Est GFR (CKD-EPI)NonAf 76 (>60 ml/min/1.73 sqM) Glucose 91 (74-99) mg/dL Calcium 9.3 (8.4-10.2) mg/dL Total Bilirubin 0.1 L (0.2-1.3) mg/dL AST 23 (14-36) U/L ALT 22 (4-34) U/L Alkaline Phosphatase 68 (38-126) U/L Total Protein 6.5 (6.3-8.2) g/dL Albumin 3.7 (3.5-5.0) g/dL Amylase 43 (30-110) U/L Lipase 140 (23-300) U/L Urine Color Urine Appearance (Clear) Urine pH (5.0-8.0) Ur Specific [place] (1.001-1.035) Urine Protein (Negative) Urine Glucose (UA) (Negative) Urine Ketones (Negative) Urine Blood (Negative) Urine Nitrite (Negative) Urine Bilirubin (Negative) Urine Urobilinogen (<2.0) mg/dL Ur Leukocyte Esterase (Negative) Urine RBC (0-5) /hpf Urine WBC (0-5) /hpf Ur Squamous Epith Cells (0-4) /hpf Urine Bacteria (None) /hpf Urine Mucus (None) /hpf Urine HCG, Qual Not Detected (Not Detectd) Disposition Clinical Impression: Right flank pain, Kidney stone on right side Disposition: HOME SELF-CARE Condition: Stable Instructions (If sedation given, give patient instructions): Kidney Stones (ED) Additional Instructions: Please return to the Emergency Department if symptoms worsen or any other concerns. May take Zofran every 8 hours for nausea, recommend Tylenol for discomfort, for more severe pain may take tramadol every 8 hours. Drink plenty of fluids. Please follow up with urology. Prescriptions: Ondansetron Odt [Zofran Odt] 4 mg PO Q8HR PRN #10 tab PRN Reason: Nausea Is patient prescribed a controlled substance at d/c from ED?: No Referrals: Ramírez Garcia MD [Primary Care Provider] - 1-2 days Sheldon Tate MD [STAFF PHYSICIAN] - 1-2 days Time of Disposition: 08:42
--- NOTE | 2020-11-05 07:58 | US ---
EXAMINATION TYPE: US gallbladder DATE OF EXAM: 11/05/2020 COMPARISON: NONE CLINICAL HISTORY: RUQ pain. right sided pain today, known polycystic renal disease EXAM MEASUREMENTS: Liver Length: 16.1 cm Gallbladder Wall: 0.2 cm CBD: 0.3 cm Right Kidney: 18.8 x 9.1 x 9.2 cm Pancreas: wnl Liver: intercostal imaging due to bowel gas wnl Gallbladder: wnl Evidence for sonographic Ferguson's sign: no CBD: wnl Right Kidney: innumerable cysts seen, enlarged IMPRESSION: Polycystic kidney disease. Otherwise unremarkable study.
--- NOTE | 2020-11-05 08:29 | XR ---
EXAMINATION TYPE: XR KUB DATE OF EXAM: 11/05/2020 COMPARISON: NONE HISTORY: Pain TECHNIQUE: Single supine KUB image of the abdomen is obtained FINDINGS: Small bowel demonstrates no evidence for dilatation or air fluid levels. Gas and fecal material is seen in non-distended colon. No convincing evidence for pneumoperitoneum. No unusual calcifications. The lung bases are clear. The osseous structures are intact. IMPRESSION: 1. Overall nonobstructive bowel gas pattern.
[2020-11-05] MEDS ORDERED: MORPHINE SULFATE 2 MG/ML SYRINGE IVP ONE (08:40)
[2020-11-05] MEDS ORDERED: traMADol 50 MG STARTER PACK 3 TAB BTL PO STA (08:40)
[2020-11-05 09:16] VITALS: BP 128/78; PULSE 70; TEMP 98
== END 2020-11-05 09:15 | disposition home or self-care (01) ==
LOC: EC 05:49
DX: N20.0 Calculus of kidney (principal); N18.2 Chronic kidney disease, stage 2 (mild); Q61.3 Polycystic kidney, unspecified; F17.200 Nicotine dependence, unspecified, uncomplicated; Z91.040 Latex allergy status; Z88.6 Allergy status to analgesic agent; Z88.1 Allergy status to other antibiotic agents; Z98.51 Tubal ligation status
CPT/HCPCS: 99284; 96374; 96375; 96376 ×2; 96361; 36415; 80053; 82150; 83690; 85025; 85610; 85730; 81001; 81025; 74018; 76705; J2405; J2270

== ENCOUNTER → 2022-11-26 | Outpatient (CLI) | payer BC, OTHER ==
[~2022-11-26] MED LIST changes: -SODIUM CHLORIDE 0.9% 1,000 ML IV SCH; +SODIUM CHLORIDE 0.9% 500 ML 500 ML in EMPTY BAG 1 BAG IV PRN
[2022-11-26 15:33] VITALS: BP 150/76; PULSE 68; RESP 16; TEMP 97.8
== END ==
LOC: PROCWHC3 13:47
PROVIDERS: ATTEND Internal Medicine Nephrology
DX: E83.10 Disorder of iron metabolism, unspecified (principal)
CPT/HCPCS: 96365; Q0138